=== PATIENT | female | born 1985 | race Caucasian/White ===

== ENCOUNTER 2019-12-30 21:15 | Inpatient (IN) ==
[2019-12-30] MEDS ORDERED: OXYTOCIN 30 UNITS/500 ML BAG IV PRN (21:43)
[2019-12-30 22:24] LABS: Hematocrit (blood only) 37.6 % (37-47); Mean Corpuscular Hemoglobin 30.8 pg (25-34); Mean Corpuscular Hgb Conc 34.6 g/dL (32-36); Mean Corpuscular Volume 89.1 fL (80-100); Mean Platelet Volume 12.6 fL (7.4-10.4); Platelet Count 114 K/uL (130-400); Platelet Estimate Decreased (Normal); RDW Coefficient of Variation 13.4 % (11.5-14.5); RDW Standard Deviation 43.8 fL (36.4-46.3); Red Blood Count 4.22 M/uL (4.2-5.4); White Blood Count 12.52 K/uL (4.8-10.8)
[2019-12-30] MEDS: LACTATED RINGER'S 1,000 ML IV PRN ×2 (22:49→23:46)
[2019-12-30] MEDS ORDERED: ePHEDrine sulfate 50 MG/ML AMP ONE (22:57)
[2019-12-30] MEDS ORDERED: fentaNYL citrate 100 MCG/2 ML VIAL ONE (22:57)
[2019-12-30] MEDS ORDERED: BUPIVACAINE 0.25% 30 ML VIAL ONE (22:57)
[2019-12-30] MEDS ORDERED: fentaNYL 2MCG/ML ROPIV 1.25MG/ML 100 ML BAG EPI ONE (22:58)
--- NOTE | 2019-12-30 23:41 | Anesthesiology Consultation ---
Date of Service December 30, 2019 Assessment & Plan Chart Review Chart Review: Acceptable Risk for Surgery, Patient NOT seen in Pre Admission Testing and Acceptable Risk for Labor Epidural Consults Requested none ASA ASA2 Proposed Anesthesia Anesthesia Type: Labor Epidural and CSE Risk / Benefits Reviewed With: PT / POA / Parent / Guardian, Accepts Plan and Informed Consent Obtained History Height/Weight Height: 5 ft 6 in Weight: 68.492 kg Allergies Allergy/AdvReac Type Severity Reaction Status Date / Time No Known Allergies Allergy Verified 12/30/19 08:40 Medications Home Medications Medication Instructions Recorded Confirmed Last Taken multivitamin with iron 1 tab PO DAILY 07/23/19 12/30/19 12/29/19 Active Medications Generic Name Dose Route Start Last Admin Trade Name Freq PRN Reason Stop Dose Admin Lactated Ringer's 1,000 mls @ 125 mls/hr 12/30/19 21:43 12/30/19 22:49 Lr IV 01/01/20 21:42 999 mls/hr .Q8H PRN Administration L&D Protocol Protocol NPO Date Last Intake of Fluids: 12/30/19 Time Last Intake of Fluids: 19:00 Date Last Intake of Solids: 12/30/19 Time Last Intake of Solids: 19:00 Past Medical History Medical History Encounter for anatomic survey Varicella Yeast infection Exercise / Class Metabolic Activity II 4-5 Yardwork/Stairs/Walk up hill Past Family History Family History Mother Clotting disorder Father Hypertension Past Surgical History Surgical History S/P tonsillectomy S/P wisdom tooth extraction Past Anesthesia History No Hx of Anesthesia Complications and No Family Hx of Anesthesia Complications History of PONV No Hx of PONV and No Hx of Motion Sickness Social History Smoking Status: Never smoker Hx Alcohol Use: No Hx Substance Use: No Physical Exam Vital Signs Last Vital Signs Temp 37 C 12/30/19 21:33 Pulse 73 12/30/19 23:38 Resp 18 12/30/19 21:33 BP 116/64 12/30/19 23:38 Pulse Ox 100 12/30/19 23:38 Constitutional not obese ENMT Mouth: no dentition abnormality Thyromental Distance: < 3.5 Finger Breadths Mallampati Class: II Neck normal visual inspection and trachea midline; neck extension not limited Respiratory normal respiratory effort Auscultation: lungs clear to auscultation bilaterally Cardiovascular Rate/Rhythm: regular rate and regular rhythm Heart Sounds: no murmur Vessels: no carotid bruit Musculoskeletal Spine: lumbar spine normal to inspection; normal cervical ROM Extremities: full ROM of extremities Neurologic moves all extremities Motor/Sensory: no sensory deficit Psychiatric Orientation: alert and oriented x 3 Testing Laboratory Results 12/30/19 21:54
[2019-12-31] MEDS ORDERED: NALOXONE HCL 1 MG in SODIUM CHLORIDE 0.9% 1000ML 1,000 ML IV PRN (00:03)
[2019-12-31] MEDS ORDERED: NALBUPHINE HCL INJ 10 MG/ML AMP IV PRN (00:03)
[2019-12-31] MEDS ORDERED: PROMETHAZINE HCL 25 MG in SODIUM CHLORIDE 0.9% 50 ML IV PRN (00:03)
[2019-12-31] MEDS ORDERED: NALOXONE HCL 0.4 MG/1 ML VIAL/CARP IV PRN (00:03)
[2019-12-31] MEDS ORDERED: ONDANSETRON INJ 2 MG/ML 2 ML VIAL IV PRN (00:03)
[2019-12-31] MEDS ORDERED: DiphenhydrAMINE HCL 50 MG/ML VIAL IV PRN (00:03)
[2019-12-31] MEDS ORDERED: ePHEDrine sulfate 50 MG/ML AMP IV PRN (00:03)
[2019-12-31] MEDS ORDERED: fentaNYL 2MCG/ML ROPIV 1.25MG/ML 100 ML BAG EPI PRN (00:03)
--- NOTE | 2019-12-31 00:49 | History & Physical Report ---
Date of Service December 31, 2019 Assessment & Plan (1) Normal labor: IUP at 40+ weeks in labor will walk now then plans epidural analgesia will AROM after epidural anticipate vaginal History of Present Illness Primary Care Provider: NO PCP Patient is a 34yo white female EDC 12/27/19 who presents with regular contractions for several hours. + bloody show, no SPROM. baby has been active. GBS -negative. has been uncomplicated. She did have a 4th degree laceration with her last delivery which healed well. Allergies Allergy/AdvReac Type Severity Reaction Status Date / Time No Known Allergies Allergy Verified 12/30/19 08:40 Home Medications Home Medications Medication Instructions Recorded Confirmed Type multivitamin with iron 1 tab PO DAILY 07/23/19 12/30/19 History Patient History Medical History Encounter for anatomic survey Varicella Yeast infection Surgical History S/P tonsillectomy S/P wisdom tooth extraction Family History Mother Clotting disorder Father Hypertension Social History Preferred Language: Slovenian Communication Ability: Effective Burr Machine Operator Required: No Beliefs That Will Affect Care: None marital status: marital status details: Mesfin Abrams (37) [phone] Current Living Situation: Spouse Current Living Situation Comment: 3 dogs, 1 cat. Pt not changing cat litter. current occupational status: employed current occupation: Dancing Instructor with [employer] Other Information That Helps Us Care for You: No Feels Safe at Home: Yes Safety Concerns: Feels Safe At This Time Smoking Status: Never smoker Second Hand Exposure: No ; Hx Alcohol Use: No Hx Substance Use: No Physical Exam Constitutional: WD/WN, vitals as above Respiratory: normal respiratory effort, lungs clear to auscultation Cardiovascular: RRR, no murmur, no edema Gastrointestinal (Abdomen): normal bowel sounds, soft, nontender, no hepatosplenomegaly Psychiatric: A+Ox3, euthymic affect Genitourinary: OB Exam Abdomen: + vertex Manual OB Exam: + cervical dilation 3 cm, + cervical effacement 90% and + station 0 OB Exam Monitor Tracing: + external FHT monitor used, + external uterine monitor used, + category I and + normal FHT variability Results & Data Vital Signs (Past 12 Hours) Vital Signs Temp Pulse Resp BP Pulse Ox 12/31/19 00:43 78 99 12/31/19 00:41 75 100/63 12/31/19 00:38 71 97 12/31/19 00:33 74 98 12/31/19 00:28 74 100 12/31/19 00:25 76 106/67 12/31/19 00:23 77 100 12/31/19 00:18 72 100 12/31/19 00:13 79 100 12/31/19 00:08 83 106/64 100 12/31/19 00:06 81 107/60 12/31/19 00:04 76 97/61 L 12/31/19 00:03 80 100 12/31/19 00:02 77 95/59 L 12/31/19 00:00 65 101/63 12/30/19 23:59 68 109/62 12/30/19 23:58 84 113/62 99 12/30/19 23:56 75 111/59 L 12/30/19 23:54 75 112/68 12/30/19 23:53 85 100 12/30/19 23:48 69 120/71 99 12/30/19 23:45 85 126/74 12/30/19 23:43 66 93 12/30/19 23:38 73 116/64 100 12/30/19 23:33 66 100 12/30/19 23:28 69 100 12/30/19 23:24 63 111/67 12/30/19 23:23 60 100 12/30/19 21:33 98.6 F 88 18 121/73 12/30/19 21:29 88 121/73 Coding Level of Care Code None Diagnoses Normal labor O80; Z37.9
[2019-12-31] MEDS ORDERED: OXYTOCIN 30 UNITS/500 ML BAG IV PRN ×2 (00:56→03:20)
[2019-12-31] MEDS ORDERED: ACETAMINOPHEN 325 MG TAB PO PRN (03:20)
[2019-12-31] MEDS ORDERED: HYDROCORTISONE ACETATE 25 MG SUPP PR PRN (03:20)
[2019-12-31] MEDS ORDERED: SUPERCREAM 0.870% 15 GM JAR EXT PRN (03:20)
[2019-12-31] MEDS ORDERED: OXYCODONE/ACETAMINOPHEN 5mg/325mg TAB PO PRN (03:20)
[2019-12-31] MEDS ORDERED: DIPHTHERIA/TETANUS/PERTUSSIS 0.5 ML SYR/VIAL IM ONE (03:20)
[2019-12-31] MEDS ORDERED: bisacodyL 10 MG SUPP PR PRN (03:20)
[2019-12-31] MEDS ORDERED: BENZOCAINE 20% AER SPR 82.5 GM CAN EXT PRN (03:20)
--- NOTE | 2019-12-31 05:01 | Delivery Summary ---
DATE OF OPERATION: 12/31/2019 The patient is a 34-year-old 2, para 1-0-0-1 white female, EDC of 12/27/2019, who presented in active labor. She received effective epidural analgesia. Her membranes were ruptured for clear fluid. She then rapidly went to full dilation and pushed effectively through 1 contraction for delivery of a viable female infant. After the head was delivered, the right hand was presenting posteriorly. This was delivered and reduced the anterior shoulder as a result. The rest of the delivered easily and was placed on the mother's abdomen for further attention and drying. There was spontaneous crying and the infant was moving all 4 limbs. The cord was then clamped and cut after 1 minute after . The placenta was then expressed intact with a 3-vessel cord. The first-degree perineal laceration was repaired with 3-0 chromic in the usual fashion. Estimated blood loss was 250 mL bleeding was controlled with dilute Pitocin. Mother and were doing well after delivery. I attest to the content of the Intraoperative Record and any orders documented therein. Any exception s are noted below.
--- NOTE | 2019-12-31 07:57 | Obstetrical Progress Note ---
Date of Service December 31, 2019 Assessment & Plan (1) Encounter for care and examination after delivery: satisfactory course continue current care plan Subjective Ambulation: ambulating normally Voiding: no voiding problems Passing Gas:: Yes Diet Tolerance:: regular diet Lochia:: Small Feeding Type:: breast feeding Physical Exam Constitutional WD/WN, vitals as above Psychiatric A+Ox3, euthymic affect Genitourinary OB Exam Abdomen: + fundal height Fundus: + firm and + relation to umbilicus (at U) Results & Data Vital Signs (Past 12 Hours) Vital Signs Temp Pulse Pulse Pulse Resp BP BP 12/31/19 07:53 97.5 F L 56 L 18 118/64 12/31/19 05:45 98.2 F 83 16 12/31/19 05:10 98.2 F 18 12/31/19 05:02 69 111/66 12/31/19 04:47 78 117/70 12/31/19 04:32 78 114/71 12/31/19 04:17 72 118/73 12/31/19 04:02 69 127/76 12/31/19 03:55 16 12/31/19 03:47 73 127/66 12/31/19 03:40 97.9 F 16 12/31/19 03:32 87 120/75 12/31/19 03:25 16 12/31/19 03:24 76 122/80 12/31/19 03:10 18 12/31/19 03:09 123/81 12/31/19 03:07 90 131/70 12/31/19 02:54 100 H 134/71 12/31/19 02:53 109 H 12/31/19 02:48 80 12/31/19 02:43 97 H 12/31/19 02:40 98 H 125/77 12/31/19 02:38 91 H 12/31/19 02:33 73 12/31/19 02:28 73 12/31/19 02:25 66 107/64 12/31/19 02:23 65 12/31/19 02:18 68 12/31/19 02:13 64 12/31/19 02:09 70 110/71 12/31/19 02:08 86 12/31/19 02:03 70 12/31/19 02:00 97.9 F 16 12/31/19 01:58 74 12/31/19 01:54 63 109/65 12/31/19 01:53 65 12/31/19 01:48 69 12/31/19 01:43 68 12/31/19 01:40 77 118/72 12/31/19 01:38 73 12/31/19 01:33 74 12/31/19 01:30 18 12/31/19 01:28 80 12/31/19 01:23 72 12/31/19 01:18 79 12/31/19 01:13 82 12/31/19 01:09 76 114/70 12/31/19 01:08 74 12/31/19 01:03 67 12/31/19 01:01 98.1 F 16 12/31/19 00:58 71 12/31/19 00:54 73 109/69 12/31/19 00:53 80 12/31/19 00:48 76 12/31/19 00:43 78 12/31/19 00:41 75 100/63 12/31/19 00:38 71 12/31/19 00:33 74 12/31/19 00:31 18 12/31/19 00:28 74 12/31/19 00:25 76 106/67 12/31/19 00:23 77 12/31/19 00:18 72 12/31/19 00:13 79 12/31/19 00:08 83 106/64 12/31/19 00:06 81 107/60 12/31/19 00:04 76 97/61 L 12/31/19 00:03 80 12/31/19 00:02 77 95/59 L 12/31/19 00:01 16 12/31/19 00:00 65 101/63 12/30/19 23:59 68 109/62 12/30/19 23:58 84 113/62 12/30/19 23:56 75 111/59 L 12/30/19 23:54 75 112/68 12/30/19 23:53 85 12/30/19 23:48 69 120/71 12/30/19 23:45 85 126/74 12/30/19 23:43 66 12/30/19 23:38 73 116/64 12/30/19 23:33 66 12/30/19 23:28 69 12/30/19 23:24 63 111/67 12/30/19 23:23 60 12/30/19 23:20 98.2 F 16 12/30/19 21:33 98.6 F 88 18 121/73 12/30/19 21:29 88 121/73 BP Pulse Ox 12/31/19 07:53 97 12/31/19 05:45 120/71 97 12/31/19 05:10 12/31/19 05:02 12/31/19 04:47 12/31/19 04:32 12/31/19 04:17 12/31/19 04:02 12/31/19 03:55 12/31/19 03:47 12/31/19 03:40 12/31/19 03:32 12/31/19 03:25 12/31/19 03:24 12/31/19 03:10 12/31/19 03:09 12/31/19 03:07 12/31/19 02:54 12/31/19 02:53 100 12/31/19 02:48 100 12/31/19 02:43 100 12/31/19 02:40 12/31/19 02:38 98 12/31/19 02:33 97 12/31/19 02:28 98 12/31/19 02:25 12/31/19 02:23 98 12/31/19 02:18 98 12/31/19 02:13 100 12/31/19 02:09 12/31/19 02:08 99 12/31/19 02:03 98 12/31/19 02:00 12/31/19 01:58 97 12/31/19 01:54 12/31/19 01:53 98 12/31/19 01:48 98 12/31/19 01:43 98 12/31/19 01:40 12/31/19 01:38 98 12/31/19 01:33 98 12/31/19 01:30 12/31/19 01:28 98 12/31/19 01:23 99 12/31/19 01:18 99 12/31/19 01:13 99 12/31/19 01:09 12/31/19 01:08 99 12/31/19 01:03 96 12/31/19 01:01 12/31/19 00:58 96 12/31/19 00:54 12/31/19 00:53 98 12/31/19 00:48 97 12/31/19 00:43 99 12/31/19 00:41 12/31/19 00:38 97 12/31/19 00:33 98 12/31/19 00:31 12/31/19 00:28 100 12/31/19 00:25 12/31/19 00:23 100 12/31/19 00:18 100 12/31/19 00:13 100 12/31/19 00:08 100 12/31/19 00:06 12/31/19 00:04 12/31/19 00:03 100 12/31/19 00:02 12/31/19 00:01 12/31/19 00:00 12/30/19 23:59 12/30/19 23:58 99 12/30/19 23:56 12/30/19 23:54 12/30/19 23:53 100 12/30/19 23:48 99 12/30/19 23:45 12/30/19 23:43 93 12/30/19 23:38 100 12/30/19 23:33 100 12/30/19 23:28 100 12/30/19 23:24 12/30/19 23:23 100 12/30/19 23:20 12/30/19 21:33 12/30/19 21:29
[2019-12-31] MEDS: DOCUSATE SODIUM 100 MG CAP PO SCH ×2 (08:55→20:14)
[2019-12-31] MEDS: PRENATAL VITAMIN 1 TAB PO SCH (08:55)
--- NOTE | 2019-12-31 08:56 | Anesthesia Procedure Note ---
Date of Service December 31, 2019 Anesthesia Post Epidural Note Vital Signs Vital Signs: Temp Pulse Resp BP Pulse Ox 36.4 C L 56 L 18 118/64 97 12/31/19 07:53 12/31/19 07:53 12/31/19 07:53 12/31/19 07:53 12/31/19 07:53 Notes Mental Status: alert / awake / arousable and participated in evaluation Nausea / Vomiting: adequately controlled Pain: adequately controlled Airway Patency, RR, SpO2: stable & adequate BP & HR: stable & adequate Hydration State: stable & adequate Neuraxial Anesthesia: was administered and sensory block is resolving Anesthetic Complications: no major complications apparent and Pt Satisfied with anesthetic care Epidural: Removed without complications and With tip intact
[2019-12-31] MEDS: IBUPROFEN 600 MG TAB PO PRN ×2 (13:09→20:13)
--- NOTE | 2020-01-01 06:56 | Obstetrical Progress Note ---
Date of Service January 01, 2020 Assessment & Plan (1) Encounter for care and examination after delivery: stable routine care, d/c home, instructions reviewed, f/u 6wks pp check. rh pos. ri. breast feeding. Subjective Ambulation: ambulating normally Voiding: no voiding problems Diet Tolerance:: regular diet Lochia:: Small Feeding Type:: breast feeding no pain issues , ready to go home. Physical Exam Constitutional WD/WN, vitals as above Respiratory normal respiratory effort, lungs clear to auscultation Cardiovascular Rate/Rhythm: regular rate and regular rhythm Gastrointestinal (Abdomen) Percussion/Palpation: abdomen soft (ff 2 down nt); abdomen nontender Musculoskeletal nt calves. Neurologic grossly normal Psychiatric A+Ox3, euthymic affect Results & Data Vital Signs (Past 12 Hours) Vital Signs Temp Pulse Pulse Resp BP BP Pulse Ox 01/01/20 03:05 97.5 F L 60 18 114/73 01/01/20 00:35 97.5 F L 58 L 18 115/72 98 12/31/19 20:07 97.5 F L 71 16 122/69 98
[2020-01-01 07:02] LABS: Hematocrit (blood only) 35.4 % (37-47); Hemoglobin 11.9 g/dL (12.0-16.0); Mean Corpuscular Hemoglobin 30.4 pg (25-34); Mean Corpuscular Hgb Conc 33.6 g/dL (32-36); Mean Corpuscular Volume 90.3 fL (80-100); Mean Platelet Volume 13.4 fL (7.4-10.4); Platelet Count 117 K/uL (130-400); Platelet Estimate Decreased (Normal); RDW Coefficient of Variation 13.5 % (11.5-14.5); RDW Standard Deviation 44.6 fL (36.4-46.3); Red Blood Count 3.92 M/uL (4.2-5.4); White Blood Count 10.04 K/uL (4.8-10.8)
[2020-01-01] MEDS: DOCUSATE SODIUM 100 MG CAP PO SCH (07:49)
[2020-01-01] MEDS: PRENATAL VITAMIN 1 TAB PO SCH (07:49)
[2020-01-01] MEDS: IBUPROFEN 600 MG TAB PO PRN (07:49)
[2020-01-01] MEDS ORDERED: bisacodyL 5 MG TABEC PO SCH (20:00)
== END 2020-01-01 11:30 | disposition home or self-care (01) | DRG 807 ==
LOC: OPB 21:15 → 4S1 21:17 → 4S2 12-31 05:59